=== PATIENT | female | born 1990 ===

== ENCOUNTER 2016-05-25 23:26 | Emergency (ER) | payer MEDICAID ==
[2016-05-25 23:26] VITALS: BMI 30.7
[2016-05-25 23:45] VITALS: BP 131/54; PULSE 93; RESP 17; TEMP 98.8; O2SAT 98
--- NOTE | 2016-05-25 23:45 | ED PDOC ---
HPI: Back Time Seen by Provider: 05/25/16 23:39 Chief Complaint (Nursing): Back Pain Chief Complaint (Provider): Back Pain History Per: Patient Additional Complaint(s): 6 yr old female presents to the ER with complaints of exacerbated left lower back pain x 2 days. Patient states the pain started 1 day after shoveling snow and is associated with left knee pain when supine last night but has now resolved. Patient states the back pain occasionally radiates to left hip and is worse with flexion. Patient denies direct trauma, vomiting, abdominal pain, diarrhea, dysuria, hematuria, weakness or numbness. Pt seen and evaluated in the ED at [facility] yesterday and was discharged on Naprosyn and flexeril Past Medical History Reviewed: Nursing Documentation, Vital Signs - Medical History PMH: No Chronic Diseases - Surgical History Surgical History: Tonsillectomy - Family History Family History: States: Unknown Family Hx - Immunization History Hx Tetanus Toxoid Vaccination: No Hx Influenza Vaccination: No Hx Pneumococcal Vaccination: No - Home Medications Home Medications: Ambulatory Orders Medication Instructions Recorded Cyclobenzaprine [Flexeril] 10 mg PO TID #15 tab 05/24/16 Naproxen 500 mg PO BID #30 tab 05/24/16 Cyclobenzaprine [Cyclobenzaprine 10 mg PO TID #20 tab 05/26/16 HCl] Ibuprofen [Motrin] 600 mg PO Q6 #20 tab 05/26/16 oxyCODONE/Acetaminophen [Percocet 1 ea PO Q6 PRN #5 tab 05/26/16 5/325 mg Tab] - Allergies Allergies/Adverse Reactions: Allergies Allergy/AdvReac Type Severity Reaction Status Date / Time Penicillins Allergy RASH Verified 05/24/16 09:58 Review of Systems ROS Statement: Except As Marked, All Systems Reviewed And Found Negative Musculoskeletal: Positive for: Back Pain Physical Exam - Reviewed Nursing Documentation Reviewed: Yes Vital Signs Reviewed: Yes - Physical Exam Appears: Positive for: Well, Non-toxic, No Acute Distress Head Exam: Positive for: ATRAUMATIC, NORMAL INSPECTION, NORMOCEPHALIC Skin: Positive for: Normal Color, Warm, DRY Eye Exam: Positive for: EOMI, Normal appearance, PERRL ENT: Positive for: Normal ENT Inspection Neck: Positive for: Normal, Painless ROM Cardiovascular/Chest: Positive for: Regular Rate, Rhythm Respiratory: Positive for: CNT, Normal Breath Sounds Gastrointestinal/Abdominal: Positive for: Normal Exam, Bowel Sounds, Soft Back: Positive for: Normal Inspection. Negative for: L CVA Tenderness, R CVA Tenderness, Vertebral Tenderness Extremity: Positive for: Normal ROM Neurologic/Psych: Positive for: Alert, Oriented Medical Decision Making Medical Decision Making: Dip (-) leuks or nites. Pt medicated with Percocet, Motrin and Flexeril Pt doing well on re-eval, no complaints of pain. Pt able to ambulate with steady gait. Disposition - Clinical Impression Clinical Impression: Back pain - Patient ED Disposition Is Patient to be Admitted: No - Disposition Disposition: Routine/Home Disposition Time: 01:59 Condition: GOOD Prescriptions: Cyclobenzaprine [Cyclobenzaprine HCl] 10 mg PO TID #20 tab Ibuprofen [Motrin] 600 mg PO Q6 #20 tab oxyCODONE/Acetaminophen [Percocet 5/325 mg Tab] 1 ea PO Q6 PRN #5 tab PRN Reason: Pain, Severe (8-10) Instructions: Back Pain (ED) - POA Present On Arrival: None
[2016-05-26] MEDS ORDERED: Oxycodone/Acetaminophen 5/325 mg Tab PO STA (00:12)
[2016-05-26] MEDS ORDERED: Oxycodone/Acetaminophen 5/325 mg Tab ONE (00:18)
== END 2016-05-26 02:00 | disposition home or self-care (01) ==
LOC: H.ER 23:26
DX: M54.9 Dorsalgia, unspecified (principal)

== ENCOUNTER 2016-09-30 13:01 | Emergency (ER) | payer MEDICAID ==
[2016-09-30 13:01] VITALS: BMI 30.7
[2016-09-30 13:08] VITALS: BP 142/82; PULSE 83; RESP 16; TEMP 98; O2SAT 99
--- NOTE | 2016-09-30 13:25 | ED PDOC ---
HPI: Abdomen Time Seen by Provider: 09/30/16 13:05 Chief Complaint (Nursing): Abdominal Pain Chief Complaint (Provider): Pelvic pain, 4 weeks pregnany, History Per: Patient History/Exam Limitations: no limitations Onset/Duration Of Symptoms: Days (1) Outside of [place] travel?: No Current Symptoms Are (Timing): Still Present Severity: Moderate Pain Scale Rating Of: 5 Additional Complaint(s): Pt states LMP was 09/03/16/. Pt states she had a positivie test 2 days ago and today is having severe suprapubic cramping. Abnormal Vaginal Bleeding: No Last Menstral Period: 09/03/16 : 5 Para: 2 Miscarriage: 2 (Elective ) Past Medical History Reviewed: Historical Data, Nursing Documentation, Vital Signs Vital Signs: Last Vital Signs Temp 98 F 09/30/16 13:04 Pulse 83 09/30/16 13:04 Resp 16 09/30/16 13:04 BP 142/82 09/30/16 13:04 Pulse Ox 99 09/30/16 13:29 - Medical History PMH: No Chronic Diseases - Surgical History Surgical History: Tonsillectomy - Family History Family History: States: Unknown Family Hx - Immunization History Hx Tetanus Toxoid Vaccination: No Hx Influenza Vaccination: No Hx Pneumococcal Vaccination: No - Home Medications Home Medications: Ambulatory Orders Medication Instructions Recorded Cyclobenzaprine [Flexeril] 10 mg PO TID #15 tab 05/24/16 Naproxen 500 mg PO BID #30 tab 05/24/16 Cyclobenzaprine [Cyclobenzaprine 10 mg PO TID #20 tab 05/26/16 HCl] Ibuprofen [Motrin] 600 mg PO Q6 #20 tab 05/26/16 oxyCODONE/Acetaminophen [Percocet 1 ea PO Q6 PRN #5 tab 05/26/16 5/325 mg Tab] - Allergies Allergies/Adverse Reactions: Allergies Allergy/AdvReac Type Severity Reaction Status Date / Time Penicillins Allergy RASH Verified 05/24/16 09:58 Review of Systems ROS Statement: Except As Marked, All Systems Reviewed And Found Negative Genitourinary Female: Positive for: Pelvic Pain (Cramping ) Physical Exam - Reviewed Nursing Documentation Reviewed: Yes Vital Signs Reviewed: Yes - Physical Exam Appears: Positive for: Well, Non-toxic, No Acute Distress Head Exam: Positive for: ATRAUMATIC, NORMAL INSPECTION, NORMOCEPHALIC Skin: Positive for: Normal Color, Warm, DRY Eye Exam: Positive for: Normal appearance ENT: Positive for: Normal ENT Inspection Neck: Positive for: Normal, Painless ROM Cardiovascular/Chest: Positive for: Regular Rate, Rhythm Respiratory: Positive for: Normal Breath Sounds. Negative for: Accessory Muscle Use, Respiratory Distress Gastrointestinal/Abdominal: Positive for: Normal Exam, Bowel Sounds, Soft. Negative for: Tenderness Back: Positive for: Normal Inspection Extremity: Positive for: Normal ROM Neurologic/Psych: Positive for: Alert, Oriented - Laboratory Results Result Diagrams: 09/30/16 13:38 09/30/16 13:38 - ECG O2 Sat by Pulse Oximetry: 99 Medical Decision Making Medical Decision Making: Urine (-) in ER Beta HcG 8. Discussed with patient. Disposition - Clinical Impression Clinical Impression: Threatened miscarriage - Patient ED Disposition Is Patient to be Admitted: No Counseled Patient/Family Regarding: Diagnosis, Need For Followup - Disposition [facility] Disposition: Routine/Home Disposition Time: 15:51 Condition: GOOD Additional Instructions: Please begin vitamins. Instructions: Threatened Miscarriage (ED)
[2016-09-30 14:01] LABS: MEAN CELL VOLUME 93.7 fl (81.0-99.0); MEAN CORPUSCULAR HEMOGLOBIN 30.8 pg (27.0-31.0); MEAN CORPUSCULAR HGB CONC 32.9 g/dL (33.0-37.0); RBC 4.23 Mil/uL (3.80-5.20); RED CELL DISTRIBUTION WIDTH 12.9 % (11.5-14.5); WHITE BLOOD COUNT 13.4 K/uL (4.8-10.8)
[2016-09-30 14:07] LABS: ALB/GLOB RATIO 1.1 (1.0-2.1); ALBUMIN 3.9 g/dL (3.5-5.0); ALT/SGPT 80 U/L (9-52); AST/SGOT 29 U/L (14-36); BLOOD UREA NITROGEN 12 mg/dl (7-17); CALCIUM 9.1 mg/dL (8.4-10.2); GFR AFRICAN-AMERICAN > 60; GFR NON-AFRICAN AMERICAN > 60
--- NOTE | 2016-09-30 15:48 | US ---
PROCEDURE: HISTORY: Pain, 4 weeks pegnant, COMPARISON: TECHNIQUE: FINDINGS: The uterus measures 6.0 x 4.0 x 5.0 centimeters. The endometrium measures 11 millimeters. There is no intrauterine gestational sac or sac. The right ovary has a 3 centimeter septated cyst. The left ovary measures 3.0 x 2.0 x 2.0 centimeters. Minimal free fluid in the pelvis. IMPRESSION: Right ovarian cyst. No evidence of intrauterine . Cannot exclude ectopic .
== END 2016-09-30 16:11 | disposition home or self-care (01) ==
LOC: H.ER 13:01
DX: O20.0 Threatened abortion (principal); N83.201 Unspecified ovarian cyst, right side; Z88.0 Allergy status to penicillin